=== PATIENT | male | born 1970 | race Caucasian/White ===

== ENCOUNTER 2018-02-05 09:26 | Day surgery (SDC) | payer BC ==
[~2018-02-05] VITALS: Ht 182.9 cm; Wt 117.6 kg
[~2018-02-05 09:26] MED LIST: AMLO5TAB2 PO; BUPIVACAINE 0.25% ONE; COLC1TAB PO; LATA2.5D3 EACHEYE; LISI40TA PO
[2018-02-05 10:21] VITALS: BP 160/102
[2018-02-05] MEDS: LACTATED RINGERS 1,000 ML IV SCH ×2 (11:24→11:25)
[2018-02-05 11:27] LABS: BASOPHILS # (AUTO) 0.03 x10^3/uL (0-0.1); BASOPHILS % (AUTO) 1 % (0-1); EOSINOPHILS # (AUTO) 0.12 x10^3/uL (0-0.4); EOSINOPHILS % (AUTO) 2 % (1-7); LYMPHOCYTES # (AUTO) 1.71 x10^3/uL (1-3.4); LYMPHOCYTES % (AUTO) 34 % (22-44); MD NO; MEAN CORPUSCULAR HGB CONC 34.2 g/dL (33.2-36.2); MEAN CORPUSCULAR VOLUME 90.6 fL (81-97); MEAN PLATELET VOLUME 8.2 fL (7.4-10.4); MONOCYTES # (AUTO) 0.71 x10^3/uL (0.2-0.8); MONOCYTES % (AUTO) 14 % (2-9); NEUTROPHILS # (AUTO) 2.45 x10^3/uL (1.8-6.8); NEUTROPHILS % (AUTO) 49 % (42-75); PLATELET COUNT 201 x10^3/uL (130-400); RED BLOOD COUNT 4.86 x10^6/uL (4.38-5.82); RED CELL DISTRIBUTION WIDTH 13.8 % (9.4-14.8)
[2018-02-05 11:28] LABS: INTERNATIONAL NORMALIZED RATIO 0.97 (0.93-1.1)
[2018-02-05 11:33] LABS: ALBUMIN 3.6 g/dL (3.4-5.0); ANION GAP 8 mmol/L (5-15); CALCIUM 8.6 mg/dL (8.5-10.1); CHLORIDE 112 mmol/L (98-107)
[2018-02-05 11:36] LABS: ALANINE AMINOTRANSFERASE 33 U/L (12-78); ALKALINE PHOSPHATASE 57 U/L (45-117); BILIRUBIN,TOTAL 0.7 mg/dL (0.2-1.0); TOTAL PROTEIN 7.4 g/dL (6.4-8.2)
[2018-02-05] MEDS ORDERED: FENTANYL PF 250 MCG/5ML ONE (12:14)
[2018-02-05] MEDS ORDERED: MIDAZOLAM 1 MG/ML, 2ML ONE (12:14)
[2018-02-05] MEDS ORDERED: FENTANYL PF 100 MCG/2ML ONE ×2 (13:27→14:15)
[2018-02-05] MEDS ORDERED: ACETAMINOPHEN 325 MG TABLET PO PRN (13:30)
[2018-02-05] MEDS ORDERED: ONDANSETRON ODT 8 MG PO PRN (13:30)
[2018-02-05] MEDS ORDERED: KETOROLAC 30 MG/1 ML IV PRN (13:30)
[2018-02-05] MEDS ORDERED: OXYcodone 5 MG/5 ML ORAL.SOL UDC PO PRN (13:30)
[2018-02-05] MEDS ORDERED: HYDROmorphone 1 MG/ML, 1ML IV PRN (13:30)
[2018-02-05] MEDS ORDERED: BUPIVACAINE/PF-EPI 0.25% 1:200K IM ONE (13:51)
[2018-02-05] MEDS ORDERED: KETOROLAC 30 MG/1 ML ONE (14:15)
[2018-02-05] MEDS ORDERED: ACETAMINOPHEN 650 MG/20.3 ML UDC ONE (14:15)
[2018-02-05] MEDS ORDERED: OXYcodone 5 MG/5 ML ORAL.SOL UDC ONE (14:15)
[2018-02-05] MEDS: FENTANYL PF 100 MCG/2ML IV PRN ×2 (14:25→14:41)
[2018-02-05] MEDS ORDERED: DIAZEPAM 5 MG TABLET ONE (14:34)
[2018-02-05] MEDS ORDERED: DIAZEPAM 5 MG TABLET PO ONE (15:00)
[2018-02-05] MEDS ORDERED: PROPOFOL 10 MG/ML, 20ML ONE (15:26)
[2018-02-05] MEDS ORDERED: CEFAZOLIN 1,000 MG ONE (15:26)
== END 2018-02-05 16:25 ==
LOC: OUT 09:26 → EDSTATUS 12:30 → OUT 16:25
PROVIDERS: ATTEND Surgery
DX: C43.59 Malignant melanoma of other part of trunk (principal); R59.1 Generalized enlarged lymph nodes; I10 Essential (primary) hypertension; Z72.89 Other problems related to lifestyle
CPT/HCPCS: 21556; 36415; 38525; 38792; 71046; 80053; 83615; 85025; 85610; 88307; 93005; A9541; J0690; J1885; J2250; J2704; J3010; J3490; J7120